=== PATIENT | female | born 1975 | race American Indian/Alaskan Native ===

== ENCOUNTER 2017-03-02 11:50 | Inpatient (IN) | payer BC ==
[2017-03-02] MEDS ORDERED: Sodium Chloride 0.9% 1,000 ML IV STA (12:42)
--- NOTE | 2017-03-02 13:10 | ED PDOC ---
HPI: Abdomen Time Seen by Provider: 03/02/17 12:22 Chief Complaint (Nursing): Abdominal Pain Chief Complaint (Provider): Abdominal pain History Per: Patient History/Exam Limitations: no limitations Onset/Duration Of Symptoms: Hrs Associated Symptoms: Nausea, Vomiting, Diarrhea. denies: Fever, Chills Additional Complaint(s): Patient is a 41 y/o female with a past medical history of irritable bowel syndrome presenting to the emergency department for constant, radiating abdominal pain and several episodes of vomiting (non-bloody) since this morning with associated nausea. Reports that the pain starts in the epigastric area and radiates across the upper abdomen. Also notes ongoing, but improving, diarrhea for two weeks, for which she takes Lomotil as prescribed. Denies chills, fever, chest pain, bloody stools, or other complaints. PCP: none provided. Past Medical History Reviewed: Historical Data, Nursing Documentation, Vital Signs Vital Signs: Last Vital Signs Temp 98.8 F 03/02/17 12:10 Pulse 81 03/02/17 12:10 Resp 16 03/02/17 12:10 BP 185/100 H 03/02/17 12:10 Pulse Ox 99 03/02/17 17:47 - Medical History PMH: No Chronic Diseases - Surgical History Surgical History: Endoscopy Other surgeries: Colonoscopy with negative findings - Family History Family History: States: Unknown Family Hx - Social History Current smoker - smoking cessation education provided: No Ex-Smoker (has not smoked in the last 12 months): No Alcohol: None Drugs: Denies - Home Medications Home Medications: Ambulatory Orders Medication Instructions Recorded Cetirizine HCl [All Day Allergy 10 mg PO DAILY 03/02/17 Relief] - Allergies Allergies/Adverse Reactions: Allergies Allergy/AdvReac Type Severity Reaction Status Date / Time avocado Allergy ANGIOEDEMA Verified 03/02/17 12:09 Review of Systems ROS Statement: Except As Marked, All Systems Reviewed And Found Negative Constitutional: Negative for: Fever, Chills Cardiovascular: Negative for: Chest Pain Gastrointestinal: Positive for: Nausea, Vomiting (non-bloody), Abdominal Pain ( constant, epigastric, radiating across upper abdomen), Diarrhea (ongoing, improving). Negative for: Hematochezia, Hematemesis Physical Exam - Reviewed Nursing Documentation Reviewed: Yes Vital Signs Reviewed: Yes - Physical Exam Appears: Positive for: Uncomfortable. Negative for: Well Head Exam: Positive for: ATRAUMATIC, NORMAL INSPECTION, NORMOCEPHALIC Skin: Positive for: Normal Color, Warm, Dry Eye Exam: Positive for: Normal appearance Neck: Positive for: Normal Cardiovascular/Chest: Positive for: Regular Rate, Rhythm Respiratory: Positive for: Normal Breath Sounds. Negative for: Accessory Muscle Use, Respiratory Distress Gastrointestinal/Abdominal: Positive for: Normal Exam, Soft, Tenderness ( epigastric) Extremity: Positive for: Normal ROM, Pedal Edema Neurologic/Psych: Positive for: Alert, Oriented (x3) - Laboratory Results Result Diagrams: 03/02/17 13:00 03/02/17 13:40 - ECG O2 Sat by Pulse Oximetry: 99 (RA) Pulse Ox Interpretation: Normal Medical Decision Making Medical Decision Making: Time: 12:42 Initial impression: Abdominal pain, vomiting, and diarrhea Differential diagnoses include but not limited to: Cholecystitis, gastritis, pancreatitis, gastroenteritis, and colitis. Initial plan: Labs Morphine 4 mg IVP Normal Saline 1 L IV Zofran 4 mg IV IV Insertion Ultrasound Abdominal Reevaluation 16:09 CT Abdomen/Pelvis scan reviewed. Findings noted as follows: LOWER THORAX: Unremarkable. LIVER: Unremarkable. No gross lesion or ductal dilatation. GALLBLADDER AND BILE DUCTS: Cholelithiasis without CT evidence of acute cholecystitis. PANCREAS: Unremarkable. No gross lesion or ductal dilatation. SPLEEN: Unremarkable. ADRENALS: Unremarkable. No mass. KIDNEYS AND URETERS: Unremarkable. No hydronephrosis. No solid mass. VASCULATURE: Unremarkable. No aortic aneurysm. BOWEL: Diverticulosis without an acute inflammatory component or other associated pathologic process. See APPENDIX: Normal appendix. PERITONEUM: Unremarkable. No free fluid. No free air. LYMPH NODES: Unremarkable. No enlarged lymph nodes. BLADDER: Unremarkable. REPRODUCTIVE: Intrauterine contraceptive device (IUD) identified. Incidental finding(s): 2.8 x 3.3 cm right adnexal cyst BONES: A gallstone is lodged in the neck of the gallbladder. OTHER FINDINGS: None. IMPRESSION: Cholelithiasis without CT evidence of acute cholecystitis. Additional benign and /or incidental findings described above. 16:16 Abdominal ultrasound reviewed. Findings noted as follows: LIVER: Measures cm in length. Normal echogenicity of the liver parenchyma. No mass. No intrahepatic bile duct dilatation. GALLBLADDER: Gallstones in the neck. COMMON BILE DUCT: Measures mm. No stones. No dilatation. PANCREAS: Unremarkable as visualized. No mass. No ductal dilatation. RIGHT KIDNEY: Measures cm in length. Normal echogenicity. No calculus, mass, or hydronephrosis. AORTA: No aneurysmal dilatation. IVC: Unremarkable. OTHER FINDINGS: None . IMPRESSION: Cholelithiasis with gallstones in the neck. [address] Lee and director medical surgical. Will admit to her Dr Lee service. Scribe Attestation: Documented by Laurel Asher, acting as a scribe for Kash Johnson MD. Provider Scribe Attestation: All medical record entries made by the Scribe were at my direction and personally dictated by me. I have reviewed the chart and agree that the record accurately reflects my personal performance of the history, physical exam, medical decision making, and the department course for this patient. I have also personally directed, reviewed, and agree with the discharge instructions and disposition. ED OBSERVATION Date of observation admission: 03/02/17 Time of observation admission: 14:16 - Observation admission statement Patient is being placed in observation because:: Abdominal pain evaluation - Progress Note Progress Note: 03/02/17 14:18 Patient is still vomiting. Ultrasound pending. 03/02/17 15:48 Still having nausea and vomiting so medication was given. Patient is now feeling stable. Disposition - Clinical Impression Clinical Impression: Gallbladder calculus, Abdominal pain - Patient ED Disposition Is Patient to be Admitted: Yes Discussed With : Angella Lee Doctor Will See Patient In The: ED Counseled Patient/Family Regarding: Studies Performed, Diagnosis - Disposition Disposition Time: 17:30 Condition: FAIR - Pt Status Changed To: Hospital Disposition Of: Inpatient - Admit Certification Admit to Inpatient:: After my assessment, the patient will require hospitalization for at least two midnights. This is because of the severity of symptoms shown, intensity of services needed, and/or the medical risk in this patient being treated as an outpatient. - POA Present On Arrival: None
[2017-03-02 13:21] LABS: BASO % 0.4 % (0.0-2.0); EOS % 0.4 % (0.0-4.0); HEMATOCRIT 42.8 % (34.0-47.0); LYMPH # 2.1 K/uL (1.0-4.3); LYMPH % 25.1 % (20.0-40.0); MEAN CELL VOLUME 75.6 fl (81.0-99.0); MEAN CORPUSCULAR HEMOGLOBIN 24.4 pg (27.0-31.0); MEAN CORPUSCULAR HGB CONC 32.3 g/dL (33.0-37.0); MEAN PLATELET VOLUME 8.8 fl (7.2-11.7); MONO # 0.8 K/uL (0.0-0.8); MONO % 9.1 % (0.0-10.0); NEUT # 5.5 K/uL (1.8-7.0); NRBC % 0.1 % (0.0-0.0); RED CELL DISTRIBUTION WIDTH 16.7 % (11.5-14.5); WHITE BLOOD COUNT 8.4 K/uL (4.8-10.8)
[2017-03-02 14:13] LABS: ALB/GLOB RATIO 1.2 (1.0-2.1); ALKALINE PHOSPHATASE 85 U/L (38-126); ALT/SGPT 85 U/L (9-52); AST/SGOT 53 U/L (14-36); BILIRUBIN,TOTAL 0.8 mg/dl (0.2-1.3); BLOOD UREA NITROGEN 7 mg/dl (7-17); CALCIUM 8.9 mg/dL (8.4-10.2); CARBON DIOXIDE 21 mmol/L (22-30); CHLORIDE 109 mmol/L (98-107); GFR AFRICAN-AMERICAN > 60; GLUCOSE,RANDOM 114 mg/dL (65-105); LIPASE 101 U/L (23-300); SODIUM 141 mmol/l (132-148); TOTAL PROTEIN 7.9 G/DL (6.3-8.2)
[2017-03-02 14:16] LABS: POTASSIUM 4.1 MMOL/L (3.6-5.0)
[2017-03-02] MEDS ORDERED: Sodium Chloride 0.9% 50 ML IV ONE (15:22)
[2017-03-02] MEDS ORDERED: Iohexol 300 100 ML IJ ONE (15:22)
--- NOTE | 2017-03-02 16:12 | CT ---
PROCEDURE: CT Abdomen and Pelvis with contrast HISTORY: abdominal pain vomiting. By history, negative test (concurrent with this examination). COMPARISON: 04/09/2010. TECHNIQUE: Contrast dose: 100 cc Omnipaque 300 Radiation dose: Total exam DLP = 1067.92 mGy-cm. This CT exam was performed using one or more of the following dose reduction techniques: Automated exposure control, adjustment of the mA and/or kV according to patient size, and/or use of iterative reconstruction technique. FINDINGS: LOWER THORAX: Unremarkable. LIVER: Unremarkable. No gross lesion or ductal dilatation. GALLBLADDER AND BILE DUCTS: Cholelithiasis without CT evidence of acute cholecystitis. PANCREAS: Unremarkable. No gross lesion or ductal dilatation. SPLEEN: Unremarkable. ADRENALS: Unremarkable. No mass. KIDNEYS AND URETERS: Unremarkable. No hydronephrosis. No solid mass. VASCULATURE: Unremarkable. No aortic aneurysm. BOWEL: Diverticulosis without an acute inflammatory component or other associated pathologic process. See APPENDIX: Normal appendix. PERITONEUM: Unremarkable. No free fluid. No free air. LYMPH NODES: Unremarkable. No enlarged lymph nodes. BLADDER: Unremarkable. REPRODUCTIVE: Intrauterine contraceptive device (IUD) identified. Incidental finding(s): 2.8 x 3.3 cm right adnexal cyst BONES: A gallstone is lodged in the neck of the gallbladder. OTHER FINDINGS: None. IMPRESSION: Cholelithiasis without CT evidence of acute cholecystitis. Additional benign and/or incidental findings described above.
--- NOTE | 2017-03-02 16:18 | US ---
HISTORY: epigastric pain COMPARISON: None. TECHNIQUE: Sonographic evaluation of the right upper quadrant of the abdomen. FINDINGS: LIVER: Measures cm in length. Normal echogenicity of the liver parenchyma. No mass. No intrahepatic bile duct dilatation. GALLBLADDER: Gallstones in the neck. COMMON BILE DUCT: Measures mm. No stones. No dilatation. PANCREAS: Unremarkable as visualized. No mass. No ductal dilatation. RIGHT KIDNEY: Measures cm in length. Normal echogenicity. No calculus, mass, or hydronephrosis. AORTA: No aneurysmal dilatation. IVC: Unremarkable. OTHER FINDINGS: None . IMPRESSION: Cholelithiasis with gallstones in the neck.
[2017-03-02] MEDS ORDERED: Piperacillin/Tazobact 3.375 GM in Sodium Chloride 0.9% 100 ML IVPB STA (17:32)
[2017-03-02] MEDS ORDERED: Piperacillin/Tazobact 3.375 gm Inj IVPB ONE (18:33)
--- NOTE | 2017-03-02 20:00 | CP.PCM.HP ---
History of Present Illness - History of Present Illness History of Present Illness: H&P- Dr. Lee 41F presented to the ED with RUQ pain with associated Non-bloody, bilious emesis and nausea since this AM. Pain is constant with no aggravating or relieving factors. Pt had similar episode in 2009. at that time pt underwent EGD and colonoscopy and given dicyclomine and symptoms resolved. Pt has had non- bloody diarrhea that has resolved over the last week. No recent sick contacts or foreign travel. Denies current CP/SOB F/C numbness or tingling in extremities PMH: Endometriosis, irritable bowel syndrome, fibroids PSH: Fibroidectomy, D&C ALL: Avocado SocialHx: occasional ETOH, 1x per year Marijuana, no tobacco or other illicit drug use Present on Admission - Present on Admission Any Indicators Present on Admission: No Review of Systems - Review of Systems All systems: reviewed and no additional remarkable complaints except - Constitutional Constitutional: As Per HPI Past Patient History - Past Social History Alcohol: None Drugs: Denies - GASTROINTESTINAL Hx Irritable Bowel: Yes - GENITOURINARY/GYNECOLOGICAL Other/Comment: endometriosis - PSYCHIATRIC Hx Substance Use: No - SURGICAL HISTORY Other/Comment: fibroid removal Meds Allergies/Adverse Reactions: Allergies Allergy/AdvReac Type Severity Reaction Status Date / Time avocado Allergy ANGIOEDEMA Verified 03/02/17 12:09 Physical Exam - Constitutional Appears: Non-toxic, No Acute Distress - Head Exam Head Exam: ATRAUMATIC - Eye Exam Eye Exam: EOMI - ENT Exam ENT Exam: Mucous Membranes Moist - Respiratory Exam Respiratory Exam: NORMAL BREATHING PATTERN. absent: Accessory Muscle Use, Rales , Rhonchi - Cardiovascular Exam Cardiovascular Exam: +S1, +S2 - GI/Abdominal Exam GI & Abdominal Exam: Distended, Guarding, Normal Bowel Sounds, Soft, Tenderness. absent: Firm, Hernia, Rigid Additional comments: TTP in RUQ, + bryson sign - Extremities Exam Extremities exam: Positive for: normal inspection - Neurological Exam Neurological exam: Alert, Oriented x3 - Skin Skin Exam: Normal Color, Warm Results - Vital Signs Recent Vital Signs: Last Vital Signs Temp 97.8 F 03/02/17 18:20 Pulse 69 03/02/17 18:20 Resp 16 03/02/17 18:20 BP 148/72 03/02/17 18:20 Pulse Ox 99 03/02/17 18:28 - Labs Result Diagrams: 03/02/17 13:00 03/02/17 13:40 Assessment & Plan - Assessment and Plan (Free Text) Assessment: 41F Cholelithiasis vs Acute Cholecystitis Plan: - NPO - IVF/Abx - GI/DVTppx - Pain control - AM labs - Plan for Lap radha tomorrow - further recs per Dr. Jesus Rapp PGY1
[2017-03-02] MEDS: Piperacillin/Tazobact 4.5 GM in Sodium Chloride 0.9% 100 ML IVPB SCH (20:40)
[2017-03-02] MEDS: Lactated Ringer's 1,000 ML IV SCH (20:47)
[2017-03-02] MEDS ORDERED: DiphenhydrAMINE 50 mg/ml Inj IVP ONE (21:00)
[2017-03-03] MEDS: Lactated Ringer's 1,000 ML IV SCH ×5 (02:37→21:29)
[2017-03-03 06:17] LABS: HEMATOCRIT 39.5 % (34.0-47.0); MEAN CELL VOLUME 74.9 fl (81.0-99.0); MEAN CORPUSCULAR HEMOGLOBIN 24.4 pg (27.0-31.0); MEAN CORPUSCULAR HGB CONC 32.6 g/dL (33.0-37.0); RED CELL DISTRIBUTION WIDTH 17.3 % (11.5-14.5)
[2017-03-03 06:27] LABS: ALB/GLOB RATIO 1.2 (1.0-2.1); ALKALINE PHOSPHATASE 74 U/L (38-126); ALT/SGPT 77 U/L (9-52); AST/SGOT 38 U/L (14-36); BILIRUBIN,TOTAL 0.8 mg/dl (0.2-1.3); BLOOD UREA NITROGEN 6 mg/dl (7-17); CALCIUM 8.3 mg/dL (8.4-10.2); CARBON DIOXIDE 22 mmol/L (22-30); CHLORIDE 109 mmol/L (98-107); GFR AFRICAN-AMERICAN > 60; GLUCOSE,RANDOM 99 mg/dL (65-105); POTASSIUM 3.5 MMOL/L (3.6-5.0); SODIUM 141 mmol/l (132-148); TOTAL PROTEIN 6.7 G/DL (6.3-8.2)
[2017-03-03 06:34] LABS: PARTIAL THROMBOPLASTIN TIME 25.9 Seconds (25.6-37.1)
--- NOTE | 2017-03-03 06:47 | PQF BMI ---
This form is a permanent part of the medical record 03/03/17 Dr. Lee, Would you please clarify if there is an associated diagnosis or not to go along with the BMI of 52.2. If yes please document the associated diagnosis AND the BMI of 52.2 if you concur. The EMR has the patient listed as being 5' 4", weighing 304 pounds with a BMI of 52.2. Clarification of your documentation is requested to better reflect the severity of illness and intensity of treatment of your patient. Indicators present [x] Documented BMI>40 [] Nutritional/Regulatory Auditor consults [] 100 pounds or more over ideal body weight [x] Documented BMI / HT & WT [] Other : [] Location in the medical record that reflects the above clinical findings: [] Other Treatment Provided: [] PHYSICIAN'S RESPONSE Based on your medical judgment of the clinical indicators outlined above, please define the following: [] Morbid obesity with a BMI of 52.2 [] Morbid obesity with a BMI of [] Obesity with a BMI of 52.2 [] Obesity with a BMI of [] Other [] No additional diagnosis [] If unable to determine, please check the box, sign and date. Present On Admission (POA) Indicator: [] Present at the time of admission [] Not present at the time of admission [] Clinically Undetermined In responding to this query, please exercise your independent professional judgment. The fact that a question is asked does not imply that any particular answer is desired or expected. Thank you for your clarification on this documentation. If you have any questions please call: extension [phone] ([facility] Department) * Thank you, Aruna Padilla RN [facility]
[2017-03-03] MEDS ORDERED: Phytonadione 10 mg/ml Inj (Adult) IV ONE (07:59)
[2017-03-03] MEDS: Piperacillin/Tazobact 4.5 GM in Sodium Chloride 0.9% 100 ML IVPB SCH ×2 (08:45→16:29)
[2017-03-03] MEDS ORDERED: Potassium Chloride 20 mEq ER Tab PO ONE (11:58)
--- NOTE | 2017-03-03 12:02 | CP.PCM.PN ---
Subjective - Date & Time of Evaluation Date of Evaluation: 03/03/17 Time of Evaluation: 10:40 - Subjective Subjective: Patient seen and examined at bedside this AM. LATOYA. Patient reports her pain is slightly improved and well controlled with current pain regimen. Denies current nausea and vomiting, fevers or chills. Objective - Vital Signs/Intake and Output Vital Signs (last 24 hours): Temp Pulse Resp BP Pulse Ox 98.0 F 71 18 162/96 H 96 03/03/17 07:24 03/03/17 07:24 03/03/17 07:24 03/03/17 07:24 03/03/17 07:24 - Medications Medications: Current Medications Famotidine (Pepcid) 20 mg IVP Q12 [facility] Last Admin: 03/02/17 20:39 Dose: 20 mg Piperacillin Sod/Tazobactam (Sod 4.5 gm/ Sodium Chloride) 100 mls @ 100 mls/hr IVPB Q8 [facility] Last Admin: 03/03/17 08:45 Dose: 100 mls/hr Lactated Ringer's (Lactated Ringer's) 1,000 mls @ 150 mls/hr IV .Q6H40M [facility] Last Admin: 03/03/17 08:46 Dose: 150 mls/hr Ketorolac Tromethamine (Toradol) 30 mg IVP Q6 PRN PRN Reason: Pain, moderate (4-7) Last Admin: 03/03/17 06:54 Dose: 30 mg Morphine Sulfate (Morphine) 4 mg IVP Q4 PRN PRN Reason: Pain, severe (8-10) Last Admin: 03/02/17 20:22 Dose: 4 mg Morphine Sulfate (Morphine) 2 mg IVP Q4 PRN PRN Reason: Pain, moderate (4-7) Ondansetron HCl (Zofran Inj) 4 mg IVP Q6 PRN PRN Reason: Nausea/Vomiting Last Admin: 03/03/17 06:55 Dose: 4 mg Potassium Chloride (K-Dur 20 Meq Er Tab) 20 meq PO ONCE ONE Stop: 03/03/17 11:59 - Labs Labs: 03/03/17 05:50 03/03/17 05:50 PT 14.8 Seconds (9.8-13.1) H 03/03/17 05:50 INR 1.4 (0.9-1.2) H 03/03/17 05:50 APTT 25.9 Seconds (25.6-37.1) 03/03/17 05:50 - Constitutional Appears: Non-toxic - Head Exam Head Exam: ATRAUMATIC, NORMOCEPHALIC - Eye Exam Eye Exam: Normal appearance. absent: Conjunctival injection, Scleral icterus - ENT Exam ENT Exam: Mucous Membranes Moist, Normal Oropharynx - Respiratory Exam Respiratory Exam: NORMAL BREATHING PATTERN. absent: Accessory Muscle Use, Respiratory Distress - Cardiovascular Exam Cardiovascular Exam: RRR - GI/Abdominal Exam GI & Abdominal Exam: Soft. absent: Distended, Tenderness - Extremities Exam Extremities Exam: absent: Calf Tenderness, Pedal Edema - Neurological Exam Neurological Exam: Alert, Awake, Oriented x3 - Psychiatric Exam Psychiatric exam: Normal Affect, Normal Mood - Skin Skin Exam: Dry, Normal Color, Warm Assessment and Plan - Assessment and Plan (Free Text) Assessment: 41F with RUQ tenderness with cholelithiasis and morbid obesity, possible acute cholecystitis US yesterday: cholelithiasis with no sign of cholecystitis CT yesterday: cholelithiasis with no sign of cholecystitis, right adnexal mass LFT's trending down. No elevation in total bilirubin Plan: - trial CLD--monitor tolerance - IVF/Abx - GI/DVTppx - Pain control - AM labs - Will continue conservative management and serial abdominal exams--no plans for surgical intervention at this time. Continue to monitor LFT's. Discussed with Dr. Jesus Lizama, PGY2
[2017-03-04] MEDS: Piperacillin/Tazobact 4.5 GM in Sodium Chloride 0.9% 100 ML IVPB SCH (01:22)
--- NOTE | 2017-03-04 06:15 | PQF GENQUE ---
This form is a permanent part of the medical record 03/04/17 Dr. Lee, Would you please document the patients BMI. When coding the diagnosis of morbid obesity a BMI needs to be documented so a code can be assigned. The EMR has the patient listed as 5'4", weighing 304 pounds with a BMI of 52.2. Clarification of your documentation is requested to better reflect the severity of illness and intensity of treatment of your patient. Indicators present [] Specify: [] [] Specify: [] [] Specify: [] [] Specify: [] Location in the medical record that reflects the above clinical findings: [] Treatment Provided: [] PHYSICIAN'S RESPONSE Based on your medical judgment of the clinical indicators outlined above please clarify the following: [] Practitioner response [] If unable to determine, please check the box, sign and date. Present On Admission (POA) Indicator: [] Present at the time of admission [] Not present at the time of admission [] Clinically Undetermined In responding to this query, please exercise your independent professional judgment. The fact that a question is asked does not imply that any particular answer is desired or expected. Thank you for your clarification on this documentation. If you have any questions please call:extension [phone] * Thank you, Aruna Padilla RN [facility]D
[2017-03-04 07:23] LABS: BASO % 0.5 % (0.0-2.0); EOS # 0.1 K/uL (0.0-0.7); EOS % 1.8 % (0.0-4.0); HEMATOCRIT 36.7 % (34.0-47.0); MEAN CORPUSCULAR HEMOGLOBIN 24.5 pg (27.0-31.0); MEAN CORPUSCULAR HGB CONC 32.2 g/dL (33.0-37.0); MEAN PLATELET VOLUME 8.7 fl (7.2-11.7); MONO # 0.8 K/uL (0.0-0.8); MONO % 12.5 % (0.0-10.0); NEUT # 3.5 K/uL (1.8-7.0); NEUT % 54.2 % (50.0-75.0); RED CELL DISTRIBUTION WIDTH 17.6 % (11.5-14.5); WHITE BLOOD COUNT 6.5 K/uL (4.8-10.8)
[2017-03-04] MEDS ORDERED: Propofol 10 mg/ml Inj (20 ML) ONE ×2 (07:32→08:18)
[2017-03-04] MEDS ORDERED: Midazolam 2 MG/2 ML VIAL ONE (07:32)
[2017-03-04] MEDS ORDERED: Neostigmine Methylsulfate 2 MG/2 ML ML IV ONE (07:33)
[2017-03-04] MEDS ORDERED: Rocuronium 10 mg/ml (5 ml) ONE ×2 (07:33→08:53)
[2017-03-04] MEDS ORDERED: Lidocaine Hydrochloride 5 ML INJ ONE (07:33)
[2017-03-04] MEDS ORDERED: Lidocaine 4% (Laryng-O-Jet) Kit MM ONE (07:33)
[2017-03-04] MEDS ORDERED: Succinylcholine 200 mg/10 ml Inj IV ONE (07:33)
[2017-03-04] MEDS ORDERED: Lactated Ringer's 1,000 ML IV ONE ×2 (07:35→12:00)
[2017-03-04 07:55] LABS: ALKALINE PHOSPHATASE 71 U/L (38-126); ALT/SGPT 99 U/L (9-52); AST/SGOT 43 U/L (14-36); BILIRUBIN,TOTAL 0.8 mg/dl (0.2-1.3); BLOOD UREA NITROGEN 5 mg/dl (7-17); CALCIUM 8.2 mg/dL (8.4-10.2); CARBON DIOXIDE 26 mmol/L (22-30); CHLORIDE 107 mmol/L (98-107); GFR AFRICAN-AMERICAN > 60; GLUCOSE,RANDOM 89 mg/dL (65-105); POTASSIUM 3.8 MMOL/L (3.6-5.0); SODIUM 139 mmol/l (132-148); TOTAL PROTEIN 6.3 G/DL (6.3-8.2)
[2017-03-04] MEDS ORDERED: Lactated Ringer's 1,000 ML IV SCH (10:01)
[2017-03-04] MEDS ORDERED: HYDROmorphone 0.5 mg/0.5 ml ISec IVP PRN (10:01)
--- NOTE | 2017-03-04 10:06 | PCM.SURG1 ---
Surgeon's Initial Post Op Note - Surgeon's Notes Surgeon: Dr. Lee Assembler Type Bar And Segment: Dr. Gamble PGY3, PGY1 Pre-Operative Diagnosis: Acute Cholecystitis Operative Findings: distended gallbladder w/ large stone Post-Operative Diagnosis: as above Operation Performed: laparoscopic cholecystitis Specimen/Specimens Removed: gallbladder Estimated Blood Loss: EBL {In ML}: 30 Drains Used: No Drains Post-Op Condition: Good Date of Surgery/Procedure: 03/04/17 Time of Surgery/Procedure: 08:15
[2017-03-04] MEDS ORDERED: Oxycodone/Acetaminophen 5/325 mg Tab PO PRN (10:08)
[2017-03-04] MEDS ORDERED: Piperacillin/Tazobact 4.5 GM in Sodium Chloride 0.9% 100 ML IVPB SCH (12:00)
[2017-03-04 12:34] VITALS: O2SAT 97
[2017-03-04 16:04] VITALS: BP 140/84; PULSE 73; RESP 18; TEMP 98.2
--- NOTE | 2017-03-05 12:24 | OP ---
PROCEDURE DATE: 03/04/2017 SURGEON: Dr. Lee. ELECTRONICS MECHANIC APPRENTICE: Dr. Gamble and Dr. Rapp. ANESTHESIA: General, Dr. Pimentel. PREOPERATIVE DIAGNOSIS: Acute cholecystitis. POSTOPERATIVE DIAGNOSIS: Acute cholecystitis PROCEDURE: Laparoscopic cholecystectomy. DESCRIPTION OF OPERATION: With the patient in the supine position under adequate general anesthesia, the abdomen was prepped and draped in the usual sterile manner. Veress needle puncture was performed at the umbilicus with insufflation to 15 cm water pressure of CO2 and a 10-mm laparoscopic trocar was inserted via a supraumbilical incision. Under direct vision, additional trocars were inserted in the epigastrium and right costal margin. The gallbladder was identified, it was tensely distended and appeared mildly inflamed. The gallbladder was aspirated of approximately 60 mL of clear green bile, and the gallbladder fundus was then grasped and elevated. Omental adhesions to the area of the infundibulum were taken down, and the infundibulum was grasped and retracted laterally. A stone was noted within the infundibulum. The cystic duct was identified and dissected, it was cleared down towards the common bile duct. The cystic artery was also identified and dissected, and after anterior and posterior visualization, the cystic duct was triply clipped and divided. Anterior and posterior branches of the cystic artery were separately dissected and then triply clipped and divided, and the gallbladder was dissected free of the liver bed using electrocautery. The liver bed was examined for hemostasis and the dissection was completed. The gallbladder was placed in a specimen retrieval bag and removed via the umbilical port site, which was enlarged slightly to allow passage of the large stone. The right upper quadrant was irrigated and suctioned. The pneumoperitoneum was released and the trocars were removed. The umbilical port site was closed with a fascial [id number] suture of 0 Vicryl. All incisions were closed with 4-0 Monocryl subcuticular sutures and Steri-Strips. Dry sterile dressings were applied. The patient tolerated the procedure well and transferred to the recovery room in stable condition. Estimated blood loss for the procedure was 10 mL. Angella Lee MD [facility] # [id number]
--- NOTE | 2017-03-09 17:09 | CP.PCM.PCO ---
Physician Communication Note - Physician Communication Note Physician Communication Note: Morbid obesity, BMI of 52.2 documented in addendum to final progress note
== END 2017-03-04 18:00 | disposition home or self-care (01) | DRG 418 ==
LOC: H.ER 11:50 → H.EROBSV 14:16 → OBSVTOIN 17:41 → H.ERHOLD 18:06 → H.MEDSURG1 18:44
PROVIDERS: ADMIT Specialist; ATTEND Specialist
PROC: 0FT44ZZ Resection of Gallbladder, Percutaneous Endoscopic Approach (ICD-10-PCS; principal; 2017-03-04 07:45)
DX: K80.00 Calculus of gallbladder with acute cholecystitis without obstruction (principal); Z68.43 Body mass index [BMI] 50.0-59.9, adult; E66.01 Morbid (severe) obesity due to excess calories; K58.0 Irritable bowel syndrome with diarrhea